=== PATIENT | female | born 1955 | race Caucasian/White ===

== ENCOUNTER 2018-05-13 06:25 | Emergency (ER) | payer MEDICARE, OTHER ==
[~2018-05-13] VITALS: Ht 170.2 cm; Wt 93.0 kg
[~2018-05-13 06:25] MED LIST: ALBU2.5V8 INH; ALPR2TAB5 PO; ATOR40TA59 PO; CETI10TA16 PO; CYAN10005 PO; CYCL-331 PO; HYDR-2769 PO; INSU100I13 SQ; INSU100I17 SQ; LEVO150T5 PO; LISI10TA2 PO; MELO15TA23 PO; NITR1PAT TD; PANT40TA3 PO; SERT100T PO; TOLT4CAP PO; [UNRECOGNIZED DRUG - CODE] PO
[2018-05-13] MEDS: ONDANSETRON PF 4 MG/2 ML VIAL. IV ONE (06:59)
[2018-05-13] MEDS: IV NORMAL SALINE 1,000ML 1,000 ML IV ONE (06:59)
[2018-05-13 07:17] LABS: BASO # 0.1 x10^3/uL (0.0-0.2); BASO % 1 % (0-3); EOS # 0.2 x10^3/uL (0.0-0.7); EOS % 1 % (0-3); HEMOGLOBIN 14.2 g/dL (12.0-15.5); LYMPH # 3.1 x10^3/uL (1.0-4.8); LYMPH % 20 % (24-48); MEAN CORPUSCULAR HEMOGLOBIN 27 pg (25-35); MEAN CORPUSCULAR HGB CONC 33 g/dL (31-37); MEAN CORPUSCULAR VOLUME 83 fL (79-100); MONO # 0.7 x10^3/uL (0.0-1.1); MONO % 5 % (0-9); NEUT # 11.3 x10^3uL (1.8-7.7); NEUT % 73 % (31-73); PLATELET COUNT 254 x10^3/uL (140-400); RED BLOOD COUNT 5.18 x10^6/uL (3.50-5.40); RED CELL DISTRIBUTION WIDTH 15.2 % (11.5-14.5); WHITE BLOOD COUNT 15.5 x10^3/uL (4.0-11.0)
--- NOTE | 2018-05-13 07:24 | PHYS DOC ---
Past History Past Medical History: Anxiety, Depression, Diabetes, Hypertension, Hyperthyroid , Hypothyroid, Other Past Surgical History: Coronary Bypass Surgery, , Hysterectomy, Tonsillectomy Additional Smoking Information: 1 PPD Alcohol Use: Occasionally Drug Use: None Adult General Chief Complaint Chief Complaint: DIZZY/LIGHT HEADED HPI HPI 62-year-old female presents with dizziness. Patient states that she woke up this morning, turned her head and immediately had a sense of the room moving and dizziness. She said the feeling was quite severe. She was unable to walk without assistance because she felt like she was going to fall over. She tried to lay back down but this did not improve dizziness. Since it did not go away, she decided to come to the hospital. The patient is a diabetic and thought it might be low blood sugar but she found her blood sugar to be 195 at home. She began to have dry heaving. The patient tells me she was feeling fine yesterday. She had no signs or symptoms of illness. She has had an episode like this before but it has been many years and it was only one time. She denies ever being placed on medication for vertigo. She denies fever or chills. Review of Systems Review of Systems Constitutional: Denies fever or chills [] Eyes: Denies change in visual acuity, redness, or eye pain [] HENT: Denies nasal congestion or sore throat [] Respiratory: Denies cough or shortness of breath [] Cardiovascular: No additional information not addressed in HPI [] GI: Denies abdominal pain, nausea, vomiting, bloody stools or diarrhea [] : Denies dysuria or hematuria [] Musculoskeletal: Denies back pain or joint pain [] Integument: Denies rash or skin lesions [] Neurologic: Denies headache, focal weakness or sensory changes. Dizziness [] Endocrine: Denies polyuria or polydipsia [] All other systems were reviewed and found to be within normal limits, except as documented in this note. Current Medications Current Medications Current Medications Medications (Trade) Dose Ordered Sig/Jeanna Start Time Stop Time Status Last Admin Dose Admin Meclizine HCl (Antivert) 12.5 mg 1X ONCE 05/13/18 07:00 05/13/18 07:01 DC Ondansetron HCl (Zofran) 4 mg 1X ONCE 05/13/18 07:00 05/13/18 07:01 DC 05/13/18 06:59 4 MG Sodium Chloride 1,000 ml @ 1,000 mls/hr 1X ONCE 05/13/18 07:00 05/13/18 07:59 05/13/18 06:59 1,000 MLS/HR Allergies Allergies Allergies Coded Allergies Type Severity Reaction Last Updated Verified Penicillins Allergy Intermediate 11/17/17 Yes Physical Exam Physical Exam Constitutional: Well developed, well nourished, no acute distress, non-toxic appearance. [] HENT: Normocephalic, atraumatic, bilateral external ears normal, oropharynx moist, no oral exudates, nose normal. [] Eyes: PERRLA, EOMI, conjunctiva normal, no discharge. No nystagmus [] Neck: Normal range of motion, no tenderness, supple, no stridor. [] Cardiovascular:Heart rate regular rhythm, no murmur [] Lungs & Thorax: Bilateral breath sounds clear to auscultation [] Abdomen: Bowel sounds normal, soft, no tenderness, no masses, no pulsatile masses. Dry heaving[] Skin: Warm, dry, no erythema, no rash. [] Back: No tenderness, no CVA tenderness. [] Extremities: No tenderness, no cyanosis, no clubbing, ROM intact, no edema. [] Neurologic: Alert and oriented X 3, normal motor function, normal sensory function, no focal deficits noted. [] Psychologic: Affect normal, judgement normal, mood normal. [] Current Patient Data Vital Signs Vital Signs Date Time Temp Pulse Resp B/P (MAP) Pulse Ox O2 Delivery O2 Flow Rate FiO2 05/13/18 06:33 97.9 72 20 100 Room Air EKG EKG [] Radiology/Procedures Radiology/Procedures [] Impressions: CT HEAD WO CONTRAST Clinical indications: Dizziness, Vomiting COMPARISON: None available. Technique: Noncontrast axial cross sectional scanning of the head was performed. PQRS compliance Statement One or more of the following individualized dose reduction techniques were utilized for this study: 1. Automated exposure control 2. Adjustment of the mA and/or kV according to patient size 3. Use of iterative reconstruction technique Findings: No acute intracranial hemorrhage or midline shift or mass-effect or hydrocephalus or extra-axial fluid collection is seen. 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 No skull fracture or pneumocephalus is seen. No opacification of the mastoid sinuses or the paranasal sinuses is seen. The maxillary sinuses are not completely seen in this study. Impression: No acute intracranial abnormality is seen. Electronically signed by: Mayela Cortez MD (05/13/2018 7:32 AM) [facility] DICTATED AND SIGNED BY: MAYELA CORTEZ MD DATE: 05/13/18725 CC: CHRISTINA FONSECA DO; SAMANTHA RAI Course & Med Decision Making Course & Med Decision Making Pertinent Labs and Imaging studies reviewed. (See chart for details) The patient was given 1 L normal saline and 4 mg of Zofran IV for her vomiting. We will give him meclizine, but will wait until her stomach settles a bit. Her workup is pending. Her labs are remarkable for white count of 15.5. Her EKG is unremarkable. Her head CT is unremarkable. Troponin is negative. Patient was given oral meclizine. Urinalysis is pending. Patient's urinalysis does show evidence of infection. I will treat her with 1 g Rocephin in the ED followed by Gayle at discharge. Her dizziness is much improved. This is likely positional vertigo. [] Dragon Disclaimer Dragon Disclaimer This electronic medical record was generated, in whole or in part, using a voice recognition dictation system. Departure Departure: Impression: Primary Impression: Dizziness Additional Impressions: Positional vertigo UTI (urinary tract infection) Disposition: HOME, SELF-CARE Condition: STABLE Referrals: SAMANTHA RAI (PCP) Scripts Meclizine Hcl (MECLIZINE HCL) 12.5 Mg Tablet 1 TAB PO TID PRN for DIZZINESS, #30 TAB Prov: CHRISTINA FONSECA DO 05/13/18 Ondansetron (ONDANSETRON ODT) 4 Mg Tab.rapdis 1 TAB PO PRN Q6-8HRS PRN for VOMITING, #16 TAB Prov: CHRISTINA FONSECA DO 05/13/18 Cephalexin (KEFLEX) 500 Mg Capsule 1 CAP PO TID for uti for 3 Days, #9 CAP Prov: CHRISTINA FONSECA DO 05/13/18 Problem Qualifiers Additional Impressions: UTI (urinary tract infection) Urinary tract infection type: acute cystitis Hematuria presence: with hematuria Qualified Codes: N30.01 - Acute cystitis with hematuria CHRISTINA FONSECA DO May 13, 2018 07:24
[2018-05-13 07:35] LABS: ALBUMIN 3.8 g/dL (3.4-5.0); ALBUMIN/GLOBULIN RATIO 1.1 (1.0-1.7); CALCIUM 9.4 mg/dL (8.5-10.1); CREATININE 0.9 mg/dL (0.6-1.0); GFR 63.9; POTASSIUM 4.1 mmol/L (3.5-5.1); TOTAL BILIRUBIN 0.3 mg/dL (0.2-1.0); TOTAL PROTEIN 7.2 g/dL (6.4-8.2)
--- NOTE | 2018-05-13 07:35 | RAD ---
CT HEAD WO CONTRAST Clinical indications: Dizziness, Vomiting COMPARISON: None available. Technique: Noncontrast axial cross sectional scanning of the head was performed. PQRS compliance Statement One or more of the following individualized dose reduction techniques were utilized for this study: 1. Automated exposure control 2. Adjustment of the mA and/or kV according to patient size 3. Use of iterative reconstruction technique Findings: No acute intracranial hemorrhage or midline shift or mass-effect or hydrocephalus or extra-axial fluid collection is seen. 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 No skull fracture or pneumocephalus is seen. No opacification of the mastoid sinuses or the paranasal sinuses is seen. The maxillary sinuses are not completely seen in this study. Impression: No acute intracranial abnormality is seen. Electronically signed by: Mukund Cortez MD (05/13/2018 7:32 AM) [id number]
[2018-05-13] MEDS: MECLIZINE 12.5 MG TABLET. PO ONE (07:42)
[2018-05-13 07:46] LABS: INFLUENZA A PATIENT NEGATIVE (NEGATIVE); INFLUENZA B PATIENT NEGATIVE (NEGATIVE)
[2018-05-13 08:00] VITALS: BP 151/68
[2018-05-13 09:10] LABS: % BANDS 1 % (0-9); % EOS 3 % (0-5); % LYMPHS 20 % (24-48); % MONOS 3 % (0-10); % SEGS 73 % (35-66)
[2018-05-13 09:11] LABS: PLT ESTIMATE ADEQUATE (ADEQUATE)
[2018-05-13 10:00] LABS: BACTERIA,URINE MANY /HPF (0-FEW); BILIRUBIN,URINE NEG (NEG); CLARITY,URINE HAZY; COLOR,URINE YELLOW; GLUCOSE,URINE 500 mg/dL (NEG); NITRITE,URINE POS (NEG); RBC,URINE 0 /HPF (0-2); SQUAMOUS EPITHELIAL CELL,UR FEW /LPF; UROBILINOGEN,URINE 0.2 mg/dL (0.2 mg/dL)
[2018-05-13] MEDS: PROCHLORPERAZINE 10 MG/2 ML VIAL. IV ONE (10:11)
[2018-05-13] MEDS ORDERED: cefTRIAXone SODIUM 1 GM VIAL ONE (10:16)
[2018-05-13] MEDS ORDERED: IV NORMAL SALINE 50ML 50 ML ONE (10:16)
[2018-05-13] MEDS ORDERED: CEPH-264 PO (10:16)
[2018-05-13] MEDS ORDERED: ONDA4TAB12 PO (10:33)
[2018-05-13] MEDS ORDERED: MECL12.52 PO (10:33)
--- NOTE | 2018-05-14 12:25 | EKG ---
[address] [id number] Test Date: 2018-05-13 Test Time: 06:35:30 Pat Name: ASAD GERMAN Department: Room: Gender: F [employer] To Door Sales Representative: YOSEF : 1955 Requested By: CHRISTINA FONSECA Order Number: [id number] Reading MD: Romero George MD Measurements Intervals [place] Rate: 73 P: -41 NE: 156 QRS: -47 QRSD: 112 T: 18 QT: 422 QTc: 469 Interpretive Statements SINUS RHYTHM PROBABLE PRIOR ANTEROSEPTAL INFARCT LBBB Electronically Signed On 05-14-2018 15:19:22 LENGTH CONTROL TESTER by Romero George MD
== END 2018-05-13 11:04 | disposition home or self-care (01) ==
LOC: ER 06:25
DX: N30.01 Acute cystitis with hematuria (principal); R42 Dizziness and giddiness; F41.9 Anxiety disorder, unspecified; F32.9 Major depressive disorder, single episode, unspecified; E11.9 Type 2 diabetes mellitus without complications; I10 Essential (primary) hypertension; E03.9 Hypothyroidism, unspecified; E05.90 Thyrotoxicosis, unspecified without thyrotoxic crisis or storm; F17.200 Nicotine dependence, unspecified, uncomplicated; Z95.1 Presence of aortocoronary bypass graft; Z88.0 Allergy status to penicillin
CPT/HCPCS: 36415; 70450; 80053; 81001; 84484; 85007; 85025; 87086; 87804; 93005; 96361; 96365; 96375; 99284; J0696; J0780; J2405; J8597; 87186; J7030